=== PATIENT | female | born 1950 | race Caucasian/White ===

== ENCOUNTER → 2020-02-20 | Outpatient (REF) | payer MEDICARE | LOC: M LAB REF 17:54 | PROVIDERS: ATTEND Dermatology | DX: L57.0 Actinic keratosis (principal); L82.1 Other seborrheic keratosis; D22.72 Melanocytic nevi of left lower limb, including hip ==

== ENCOUNTER → 2021-08-07 | Outpatient (REF) | payer MEDICARE | LOC: M LAB REF 16:10 | PROVIDERS: ATTEND Ophthalmology | DX: B07.9 Viral wart, unspecified (principal) ==

== ENCOUNTER 2021-09-15 11:02 | Outpatient (CLI) | payer MEDICARE ==
[~2021-09-15 11:02] MED LIST: ALBUTEROL 90 MCG/ACT 8GM HFA INHALER INH PRN; ALBUTEROL SULFATE 2.5 MG/0.5 ML INH NEB SOLN INH PRN; EPINEPHrine INJ 1 MG/ML 1ML AMP IM PRN; NS 1,000 ML IV SCH; diphenhydrAMINE 50MG/ML VIAL (J1200) IV PRN; methylPREDNISolone 125MG 2ML VIAL IV PRN
[2021-09-15] MEDS ORDERED: SOTROVIMAB 500 MG in NS 100 ML IV ONE (12:00)
[2021-09-15 12:09] VITALS: BP 135/74
[2021-09-15 12:39] VITALS: BP 130/62
[2021-09-15 13:39] VITALS: BP 138/62
== END 2021-09-15 13:39 | disposition home or self-care (01) ==
LOC: M OPCLI4PR 11:02
PROVIDERS: ATTEND Family Medicine
DX: U07.1 COVID-19 (principal)